=== PATIENT | female | born 1970 | race Hispanic/Latino ===

== ENCOUNTER 2022-09-18 07:03 | Emergency (ER) | payer BC, SELFPAY ==
[2022-09-18] MEDS ORDERED: methylPREDNISolone Sod Succ/PF 125 MG/2 ML VIAL ONE (07:13)
[2022-09-18] MEDS ORDERED: Famotidine/PF 20 mg/2ml Vial ONE (07:13)
[2022-09-18] MEDS ORDERED: diphenhydrAMINE 50 MG/ML VIAL ONE (07:13)
[2022-09-18] MEDS ORDERED: Ipratropium/Albuterol 3 ML NEB ONE (07:31)
[2022-09-18] MEDS ORDERED: EPINEPHrine 1 MG/ML AMP ONE (07:39)
== END 2022-09-18 12:28 | disposition home or self-care (01) ==
LOC: NAV ERS 07:03
DX: L50.0 Allergic urticaria (principal); J04.0 Acute laryngitis
CPT/HCPCS: 96372; 96374; 96375; J0171; J1200; J2930; J7611; J7620; S0028